=== PATIENT | female | born 1985 | race Caucasian/White ===

== ENCOUNTER → 2017-05-28 | Day surgery (SDC) | payer OTHER ==
[~2017-05-28] MED LIST: ALBU8.5H2 INHALATION
[2017-05-28 14:10] VITALS: BP 139/79; PULSE 63; RESP 16; O2SAT 100
[2017-05-28 14:15] VITALS: BP 130/71; PULSE 67; RESP 16; O2SAT 100
[2017-05-28 14:20] VITALS: BP 139/79; PULSE 63; RESP 16; O2SAT 100
== END | disposition home or self-care (01) ==
LOC: MOCO 14:52
PROVIDERS: ATTEND Internal Medicine Hematology & Oncology
DX: E83.110 Hereditary hemochromatosis (principal)